=== PATIENT | male | born 2000 | race Two or more races ===

== ENCOUNTER 2020-12-05 13:39 | Emergency (ER) | payer OTHER ==
[~2020-12-05] VITALS: Ht 170.2 cm; Wt 107.0 kg
[2020-12-05] MEDS ORDERED: MAALOX/HYOSCYAMINE/LIDOCAINE 45 ML BTL ONE (14:08)
[2020-12-05] MEDS ORDERED: FAMOTIDINE 20 MG TABLET ONE ×2 (14:08→14:12)
[2020-12-05] MEDS ORDERED: ONDANSETRON ODT 4 MG ONE (14:08)
[2020-12-05] MEDS: FAMOTIDINE 20 MG TABLET PO ONE ×2 (14:10→14:14)
--- NOTE | 2020-12-05 14:14 | NUR ---
lab in room
--- NOTE | 2020-12-05 14:15 | NUR ---
PT C/O RIGHT UPPER ABD PAIN X2 DAYS WITH SOME NAUSEA. VS STABLE. NO ACUTE DISTRESS NOTED. PT WENT TO US.
[2020-12-05] MEDS ORDERED: MAALOX/HYOSCYAMINE/LIDOCAINE 45 ML BTL PO ONE (14:30)
[2020-12-05] MEDS ORDERED: ONDANSETRON ODT 4 MG PO ONE (14:30)
[2020-12-05 14:35] LABS: BASOPHILS % (AUTO) 1 % (0-1); EOSINOPHILS % (AUTO) 1 % (1-7); LYMPHOCYTES % (AUTO) 37 % (22-44); MEAN CORPUSCULAR HEMOGLOBIN 30.4 pg (27.5-34.5); MEAN CORPUSCULAR HGB CONC 34.7 g/dL (33.2-36.2); MEAN PLATELET VOLUME 7.5 fL (7.4-10.4); MONOCYTES % (AUTO) 8 % (2-9); NEUTROPHILS % (AUTO) 53 % (42-75); PLATELET COUNT 282 x10^3/uL (130-400); RED BLOOD COUNT 5.31 x10^6/uL (4.38-5.82); RED CELL DISTRIBUTION WIDTH 13.7 % (9.4-14.8)
[2020-12-05 14:39] LABS: CHLORIDE 105 mmol/L (98-107)
[2020-12-05 14:40] LABS: ANION GAP 7 mmol/L (5-15); CALCIUM 8.8 mg/dL (8.5-10.1); CREATININE 0.71 mg/dL (0.7-1.3)
[2020-12-05 14:41] LABS: ALANINE AMINOTRANSFERASE 128 U/L (12-78); ALKALINE PHOSPHATASE 83 U/L (45-117); BILIRUBIN,TOTAL 1.2 mg/dL (0.2-1.0); TOTAL PROTEIN 8.1 g/dL (6.4-8.2)
[2020-12-05 15:14] LABS: MICROSCOPIC INDICATED
[2020-12-05 16:00] VITALS: BP 104/59
--- NOTE | 2020-12-05 16:00 | NUR ---
PT REPORTS HE IS FEELING BETTER. VS STABLE. NO ACUTE DISTRESS. PT READY FOR DC.
== END 2020-12-05 16:02 | disposition home or self-care (01) ==
LOC: ED 14:09
DX: K29.00 Acute gastritis without bleeding (principal)
CPT/HCPCS: 36415; 76700; 80053; 81001; 83690; 85025; 99284; Q0162